=== PATIENT | male | born 1995 | race Caucasian/White ===

== ENCOUNTER 2022-12-08 09:50 | Emergency (ER) | payer OTHER, SELFPAY ==
[2022-12-08 10:01] VITALS: BP 148/80; PULSE 99; RESP 24; TEMP 36.4; O2SAT 98; BMI 27.3
--- NOTE | 2022-12-08 10:07 | ED_ITS ---
HPI - Male Genitourinary General Chief complaint: Urogenital-Male Stated complaint: PENIAL ISSUE Time Seen by Provider: 12/08/22 09:55 Source: patient Mode of arrival: walk-in Limitations: no limitations History of Present Illness HPI Narrative: pt presented with 30 min penile pain after having sexual encounter ,the patient denies any use of any medications, or sexual enhancers , he also denies any other complaint other than the penile pain Review of systems otherwise negative Related Data Previous Rx's Medication Instructions Recorded ibuprofen 600 mg tablet 600 mg PO Q8H PRN pain #20 tabs 12/08/22 Allergies Allergy/AdvReac Type Severity Reaction Status Date / Time No Known Drug Allergies Allergy Verified 12/08/22 09:59 Review of Systems ROS Status of ROS 10 or more systems reviewed and unremarkable except as noted in history and below Exam Narrative Exam Narrative: Nurses notes and vital signs reviewed and patient is not hypoxic. General: Well-appearing and in no apparent distress. Skin: Warm, dry, no pallor noted. No rash. Head: Normocephalic, atraumatic. Neck: Supple, non-tender. Eye: Pupils are equal, round and EOMI. No scleral icterus. Ears, Nose, Mouth, and Throat: TM are clear, no nasal mucosal hypertrophy. Oral mucosa is moist, no posterior oropharynx erythema, uvula is mid-line Cardiovascular: Regular Rate and Rhythm without murmur, gallop or rub. Respiratory: No accessory muscle use or respiratory distress. Lungs are clear to auscultation, no wheezing, rales or rhonchi Chest Wall: no tenderness Back: No midline thoracic or lumbar vertebral tenderness. No CVA tenderness Musculoskeletal: normal ROM, no calf or popliteal tenderness, no lower extremity edema/swelling GI: Abdomen is soft, non-distended. Normal bowel sounds. No masses appreciated. No tenderness to palpation. No rebound, guarding, or rigidity noted. Neurological: A&O x4. No cranial nerve dysfunction observed. No truncal ataxia. Moves all extremities. Sensation intact. Psychiatric: Cooperative and interactive. Normal mood and affect. Penile and perineal exam : Glans penis is swollen and purple and the patient have the foreskin retracted and band like behind it the shaft is normal and non tender the pt scrotum and testicles within normal Constitutional Vital Signs - 24 hr 12/08/22 10:01 Temperature 97.5 F L Pulse Rate [Monitor] 99 H Respiratory Rate 24 Blood Pressure [Left Arm] 148/80 H Pulse Oximetry 98 Oxygen Delivery Method Room Air Course Vital Signs Vital signs: Vital Signs Temperature 97.5 F L 12/08/22 10:01 Pulse Rate 99 H 12/08/22 10:01 Respiratory Rate 24 12/08/22 10:01 Blood Pressure 148/80 H 12/08/22 10:01 Pulse Oximetry 98 12/08/22 10:01 Oxygen Delivery Method Room Air 12/08/22 10:01 Temperature 97.5 F L 12/08/22 10:01 Pulse Rate 99 H 12/08/22 10:01 Respiratory Rate 24 12/08/22 10:01 Blood Pressure 148/80 H 12/08/22 10:01 Pulse Oximetry 98 12/08/22 10:01 Oxygen Delivery Method Room Air 12/08/22 10:01 MDM - Male Genitourinary MDM Narrative Medical decision making narrative: Initially the patient presented to us with the Paraphimosis , local lidocaine as well as Toradol and Dilaudid provided to the patient after which the type manipulation was not able to retract the foreskin I did speak with the doctor Mauricio from urology service and he advised that the patient be provided with pain medication while he is in his way to do bedside manuever her bedside attempt reduction was not successful as the glans penis is swollen Dr. Martínez presented to the bedside with the [place] over was successful and the patient was discharged home with an saved for pain management in addition to avoiding any manipulation and sexual encounter for the next week and advised the possible need CIRCUMCISION in the future the patient was feeling much better and pain resolved Patient was referred to Dr. Martínez at outpatient The patient is to followup with primary care physician in next 2-3 days or to return to the emergency department should any of the signs or symptoms worsen or new symptoms develop. The patient agrees with the following Diagnosis and Treatment plan and the patient will be discharged home. Lab Data Labs: Lab Results 12/08/22 Range/Units 10:42 WBC 6.9 (4.0-11.0) 10^3/uL RBC 5.34 (4.70-6.10) 10^6/uL Hgb 14.8 (14.0-18.0) g/dL Hct 43.4 (42.0-54.0) % MCV 81.3 (80.0-94.0) fL MCH 27.7 (25.9-34.0) pg MCHC 34.1 (29.9-35.2) g/dL RDW 13.1 (11.0-15.0) % Plt Count 207 (150-450) 10^3/uL MPV 11.9 (9.5-13.5) fL Neut % (Auto) 61.4 (43.0-75.0) % Lymph % (Auto) 26.0 (20.5-60.0) % Sunflower % (Auto) 9.5 (1.7-12.0) % Eos % (Auto) 2.6 (0.9-7.0) % Baso % (Auto) 0.4 (0.2-2.0) % Neut # (Auto) 4.2 (1.4-6.5) 10^3/uL Lymph # (Auto) 1.8 (1.2-3.8) 10^3/uL Sunflower # (Auto) 0.7 (0.3-0.8) 10^3/uL Eos # (Auto) 0.2 (0.0-0.7) 10^3/uL Baso # (Auto) 0.0 (0.0-0.1) 10^3/uL Abs Immat Gran (auto) 0.01 (0.00-0.03) 10^3/uL Imm/Tot Granulo (auto) 0.1 (0.0-0.5) % Sodium 141 (136-145) mmol/L Potassium 3.4 L (3.5-5.1) mmol/L Chloride 107 (98-107) mmol/L Carbon Dioxide 22.2 (21.0-32.0) mmol/L Anion Gap 15.2 BUN 14.0 (7.0-18.0) mg/dL Creatinine 1.05 (0.70-1.30) mg/dL Est GFR ( Amer) >60 (>=60) Est GFR (Non-Af Amer) >60 (>=60) BUN/Creatinine Ratio 13.3 Glucose 113 H (74-106) mg/dL Calcium 9.2 (8.5-10.1) mg/dL Total Bilirubin 0.5 (0.2-1.0) mg/dL AST 39 H (15-37) U/L ALT 49 (16-63) U/L Alkaline Phosphatase 72 (46-116) U/L Total Protein 7.9 (6.4-8.2) g/dL Albumin 4.0 (3.4-5.0) g/dL Globulin 3.9 g/dL Albumin/Globulin Ratio 1.0 Discharge Plan Discharge Chief Complaint: Urogenital-Male Clinical Impression: Paraphimosis Patient Disposition: Home, Self-Care Time of Disposition Decision: 13:47 Condition: Good Mode of Transportation: Private Vehicle Prescriptions / Home Meds: New ibuprofen 600 mg tablet 600 mg PO Q8H PRN (Reason: pain ) Qty: 20 0RF Instructions: Acute Paraphimosis (ED) Stand Alone Forms: Portal Instructions Referrals: Physician,Non-Staff, MD [Primary Care Provider] - 1 week Follow Up Appointments: Mauricio ( urology )
[2022-12-08] MEDS: LIDOCAINE 2% JELLY 10 ML TOPICAL (10:16)
[2022-12-08] MEDS: HYDROMORPHONE HCL 0.5 MG/0.5 ML SYRINGE IM (10:20)
[2022-12-08] MEDS: KETOROLAC TROMETHAMINE 30 MG/ML VIAL IM (10:20)
[2022-12-08 10:53] LABS: Basophils Percent Auto 0.4 % (0.2-2.0); Eosinophils Absolute Auto 0.2 10^3/uL (0.0-0.7); Eosinophils Percent Auto 2.6 % (0.9-7.0); Hematocrit 43.4 % (42.0-54.0); Hemoglobin 14.8 g/dL (14.0-18.0); Immature Granulocytes Abs Auto 0.01 10^3/uL (0.00-0.03); Immature Granulocytes Pct Auto 0.1 % (0.0-0.5); Lymphocytes Absolute Auto 1.8 10^3/uL (1.2-3.8); Mean Corpuscular HGB Conc 34.1 g/dL (29.9-35.2); Mean Corpuscular Hemoglobin 27.7 pg (25.9-34.0); Mean Corpuscular Volume 81.3 fL (80.0-94.0); Mean Platelet Volume 11.9 fL (9.5-13.5); Monocytes Absolute Auto 0.7 10^3/uL (0.3-0.8); Monocytes Percent Auto 9.5 % (1.7-12.0); Neutrophils Absolute Auto 4.2 10^3/uL (1.4-6.5); Neutrophils Percent Auto 61.4 % (43.0-75.0); Platelet Count 207 10^3/uL (150-450); Red Blood Count 5.34 10^6/uL (4.70-6.10); Red Cell Distribution Width 13.1 % (11.0-15.0); White Blood Count 6.9 10^3/uL (4.0-11.0)
[2022-12-08 11:06] LABS: Alanine Aminotransferase 49 U/L (16-63); Alkaline Phosphatase 72 U/L (46-116); Anion Gap 15.2; Aspartate Amino Transferase 39 U/L (15-37); BUN Creatinine Ratio 13.3; Bilirubin Total 0.5 mg/dL (0.2-1.0); Calcium 9.2 mg/dL (8.5-10.1); Carbon Dioxide 22.2 mmol/L (21.0-32.0); Chloride 107 mmol/L (98-107); Estimated GFR (African America >60 (>=60); Estimated GFR (Non-African Ame >60 (>=60); Globulin 3.9 g/dL; Glucose 113 mg/dL (74-106); Potassium 3.4 mmol/L (3.5-5.1); Sodium 141 mmol/L (136-145); Total Protein 7.9 g/dL (6.4-8.2)
[2022-12-08] MEDS: MORPHINE SULFATE 4 MG/ML VIAL IV ×2 (11:47→13:19)
--- NOTE | 2022-12-08 15:56 | MISC_ITS ---
BRIEF SUMMARY:? Mr. Mack is a 27-year-old gentleman who is from [place] and is on vacation, staying with some friends in [place].? His issue at hand is that earlier this morning he had sexual intercourse and afterwards his foreskin would not pull down back over his glans penis.? Eventually, his glans penis swelled quite a bit and he experienced pain and he presented to emergency room.? After several failed attempts at reduction of his paraphimosis, Urology was consulted.? Upon questioning him further, he states that this has never happened in the past.? He has never given any thought to getting a circumcision done.? His medical history is fairly unremarkable, both surgical and medical, and rest of his medical history is outlined in the chart. PHYSICAL EXAM:? He is afebrile.? His vitals are stable.? He is resting comfortably in the ER [place] bed.? He has been getting intermittent doses of morphine and/or Dilaudid to keep him comfortable.? His abdomen is soft and non- tender.? Penis reveals an enlarged and nearly purple glans penis.? The foreskin is on the distal shaft and it is tightly constricting his shaft and causing his issue with the glans penis.? Scrotum is unremarkable.? PROCEDURE:? At this time, I then obtained verbal consent from him and did a paraphimosis reduction at the bedside.? He obtained instant relief.? The glans penis went back to its normal size and color. IMPRESSION:? Acute paraphimosis. PLAN:? This has been reduced in the ER by myself.? I strongly recommended that he get a circumcision done as soon as he gets back to [place]. Thank you for letting me take part in his care. ISABEL
== END 2022-12-08 13:58 | disposition home or self-care (01) ==
PROVIDERS: Emergency Provider Emergency Medicine
DX: N47.2 Paraphimosis (principal)
CPT/HCPCS: 36415; 80053; 85025; 96374; 96375; 96376; 99284; J1170